=== PATIENT | female | born 1990 ===

== ENCOUNTER 2017-04-12 13:53 | Emergency (ER) | payer SELFPAY ==
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
== END 2017-04-12 16:12 | disposition home or self-care (01) ==
LOC: ERS 13:53
DX: S16.1XXA Strain of muscle, fascia and tendon at neck level, initial encounter (principal); V43.92XA Unspecified car occupant injured in collision with other type car in traffic accident, initial encounter
CPT/HCPCS: 70450; 72125